=== PATIENT | male | born 1980 | race Two or more races ===

== ENCOUNTER 2024-10-15 13:51 | Outpatient (AMB) | payer OTHER, SELFPAY ==
--- NOTE | 2024-10-15 14:01 | A.OFFPC_ITS ---
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 Accompanied by: Self / Same As Patient Allergies No Known Allergies Allergy (Verified 10/15/24 14:25) Medication List - Last Reconciled 10/15/24 by RED Valadez No Known Home Meds Tobacco use date assessed: 10/15/24 Dental Screening Dental Screen Date: 10/15/24 Did you have a dental visit in the last 12 months?: Yes Did you have a dental problem in the last 6 months where you did not have access to dental care?: No Was dental information given to patient?: Patient has dentist HPI 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 Problem:: The patient is a 44-year-old male presenting to critical access hospital care for a wellness visit and management of chronic conditions. He reports a history of gallbladder removal, which previously caused pain radiating to his back, but this pain has since resolved. The patient experiences occasional mid-back pain, which he attributes to posture at work, and notes that it occurs after eating. The patient reports difficulty falling asleep, averaging four to five hours of sleep per night, and feels tired throughout the day. He has been informed of snoring and occasional gasping for air during sleep, leading to a recommendation for a home sleep study to evaluate for sleep apnea. The patient has a history of erectile disfunction, for which he is taking sertraline that he got from an online prescriber, and reports that it has been somewhat effective with making him feel more calm but does not help his erectile disfunction. He also mentions a family history of diabetes and expresses concern about his own risk, prompting a discussion about diabetes screening. The patient reports a history of constipation, which has improved recently. [facility] Medical History (Updated 10/18/24 @ 08:43 by RED Valadez) Erectile dysfunction Surgical History Cholecystotomy with removal of foreign body from gallbladder performed Family History Mother Diabetes Social History Household Members: Significant Other and Children Both parents involved: Yes Caregiver staying overnight: No Housing: House Unable to assess alcohol history related to: Unknown Alcohol intake: current Patient Tobacco Use Status: Never used Tobacco e-Cigarette/Vaping Use: Currently Using Substance Use Type: Marijuana service: No Current occupational status: employed 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 1. Little interest or pleasure in doing things: not at all 2. Feeling down, depressed, or hopeless: not at all 3. Trouble falling or staying asleep, or sleeping too much: not at all 4. Feeling tired or having little energy: more than half the days 5. Poor appetite or overeating: not at all 6. Feeling bad about yourself - or that you are a failure or have let yourself or your family down: not at all 7. Trouble concentrating on things, such as reading the newspaper or watching te levision: not at all 8. Moving or speaking so slowly that other people could have noticed. Or the opposite - being so fidgety or restless that you have been moving around a lot more than usual: not at all 9. Thoughts that you would be better off or of hurting yourself in some way: not at all Total score: 2 Depression Screening Interpretation: Negative Depression Screening Done: Yes 25903 - PHQ-9 Billing: Yes Source: Developed by Drs. Art Muñoz, Shannon Stone, Chad Velasco and colleagues, with an educational fidencio from [employer]. Thrive Questionnaire Date Thrive assessed: 10/15/24 I am a: Patient What is your living situation today?: I have a steady place to live Within the past 12 months, did the food you bought not last and you didn't have the money to get more?: Never true Within the past 12 months, did you worry whether your food would run out before you got money to buy more?: Never true Do you have trouble paying for medicines?: Yes Do you have trouble getting transportation to medical appointments?: No Do you have trouble paying your heating and electricity bill?: No Do you have trouble taking care of your child, family member or friend?: No Do you have trouble with day-to-day activities such as bathing, preparing meals, shopping, managing finances, etc.?: No Are you currently unemployed and looking for a job?: No Are you interested in more education?: No Please select the resources that you would like help with: None Currently or been in a relationship where the following occur: No concerns reported THRIVE Score: 0 AUDIT C Alcohol Use Questionnaire (AUDIT-C) 1. How often do you have a drink containing alcohol?: Monthly or less 2. How many drinks containing alcohol do you have on a typical day when you are drinking?: 1 or 2 3. How often do you have six or more drinks on one occasion?: Never Total Score: 1 MISTY-7 AMB Questionnaire MISTY-7 Date MISTY - 7 assessed: 10/15/24 Feeling nervous, anxious, or on edge: 1 = Several days Not being able to stop or control worryin = Not at all Worrying too much about different things: 0 = Not at all Trouble relaxin = Not at all Being so restless that it is hard to sit still: 0 = Not at all Becoming easily annoyed or irritable: 0 = Not at all Feeling afraid as if something awful might happen: 0 = Not at all Total MISTY-7 score (0-4 normal; 5-9 mild; 10-14 moderate; 15-21 severe): 1 Source: Developed by Drs. Art Muñoz, Shannon Stone, Chad Velasco and colleagues, with an educational fidencio from [employer] MISTY-7 Assessment Billing MISTY-7 Assessment Tool: MISTY-7 Assessment 35116 Review of Systems Const Reports daytime sleepiness, Reports difficulty sleeping, Reports fatigue, Denies headache(s), Reports snoring and Reports stops breathing during sleep Eyes Denies loss of vision ENT Denies vertigo, Denies dizziness, Denies headache(s) and Denies sore throat Card Denies chest pain, Denies leg edema and Denies lightheadedness Resp Denies cough, Denies hemoptysis, Reports snoring and Denies wheezing GI Denies abdominal pain, Denies melena, Reports constipation (History-improved), Denies diarrhea and Denies vomiting Reports erectile dysfunction, Denies dysuria, Denies urinary frequency and Denies urinary urgency Musc Reports back pain (Mid back pain), Denies arthralgias, Denies joint swelling, Denies numbness and Denies tingling Neuro Denies Abnormal speech present, Denies behavioral changes, Denies vertigo, Denies dizziness, Denies headache(s), Denies loss of vision, Denies memory loss, Denies numbness and Denies tingling Psych Reports anxiety, Denies behavioral changes, Denies depression, Denies memory loss and Denies panic attacks Endo Reports fatigue Raffi/Lymph Denies easy bleeding and Denies easy bruising Aller/Immun Denies wheezing Physical exam (Primary Care) Vital Signs: Last Vital Signs Temp 97 F 10/15/24 14:03 Pulse 78 10/15/24 14:03 Resp 18 10/15/24 14:03 BP 114/74 10/15/24 14:03 Pulse Ox 97 10/15/24 14:03 Oxygen Delivery Method Room Air 10/15/24 14:03 BMI result Body Mass Index 30.6 Tobacco/Smoking Status: Tobacco use Status Tobacco use date assessed 10/15/24 10/15/24 14:13 Patient Tobacco Use Status Never used Tobacco 10/15/24 14:13 e-Cigarette/Vaping Use Currently Using 10/15/24 14:13 PHQ-9: PHQ-9 Score PHQ-9: Total score 2 10/15/24 14:32 Depression Screening Interpretation: Negative Thrive Assessment: Date of Thrive Assessment Date Thrive assessed 10/15/24 10/15/24 14:13 Currently or been in a relationship where the following occur: No concerns reported Const General: healthy appearing, no acute distress, alert and awake Nutritional Appearance: well nourished Orientation/consciousness: oriented to person, oriented to place and oriented to time [facility] Ears: TM's normal bilaterally General nose exam: Normal nasal mucous membranes and turbinates present Eyes Conjunctivae: conjunctivae normal Sclerae: sclerae normal Pupils: Equal, round and reactive pupils present Neck Neck: Yes no lymphadenopathy and Yes no JVD Thyroid: Thyroid normal Carotids: no bruits Resp Effort & Inspection: normal respiratory effort and not tachypneic Auscultation: no crackles, no rales, no rhonchi and no wheezes Cardio Rate: regular rate Rhythm: regular rhythm Heart sounds: no murmurs and normal S1 and S2 GI Palpation (GI): Soft to palpation, nontender, no hepatomegaly and no splenomegaly Auscultation: normal bowel sounds Back/Spine/Pelvis Thoracic/Lumbar Spine: No thoracic spinal tenderness and No lumbar spinal tenderness Skin General skin exam: no rashes or lesions noted and dry skin Neuro General: oriented to person, oriented to place and oriented to time Cranial nerves: Yes Equal, round and reactive pupils present Speech: No Abnormal speech present Gait exam (Neuro): Normal gait present Motor exam (neuro): no tremor noted Extrem Right upper extremity: full ROM Left upper extremity: full ROM Right lower extremity: full ROM; no edema Left lower extremity: full ROM; no edema Psych Mental Status: mental status grossly normal Speech and movement: Normal speech and movement present Affect: normal affect Attitude: cooperative Thought process: Normal thought process present Coding Level of Care Code New Pt Level 4 (28046) Diagnoses Erectile dysfunction, unspecified erectile dysfunction type N52.9 Erectile dysfunction type: unspecified Anxiety F41.9 Additional Codes PHQ-9 - 71440 - PHQ-9 Billing: Yes ([id number]) MISTY-7 Assessment Billing - MISTY-7 Assessment Tool: MISTY-7 Assessment 65166 ([id number]) Time Spent (min) 39 Assessment & Plan Assessment & Plan (1) Erectile dysfunction: Code(s): N52.9 - Male erectile dysfunction, unspecified Category: Medical Qualifiers: Erectile dysfunction type: unspecified Qualified Code(s): N52.9 - Male erectile dysfunction, unspecified (2) Anxiety: Code(s): F41.9 - Anxiety disorder, unspecified Category: Medical Plan The patient will undergo a home sleep study to evaluate for sleep apnea, given the reported symptoms of snoring and occasional gasping for air during sleep. A diabetes screening is recommended due to the family history of diabetes and the patient's concern about his own risk. The patient is advised to continue sertraline for anxiety management, as it has been somewhat effective. Will start the patient on tadalafil for erectile dysfunction. The patient is encouraged to modify his diet, particularly reducing sweets before bedtime, to improve sleep quality. He is also advised to maintain his reduced coffee intake to weekends only. Follow-up is planned in seven weeks for a complete physical examination and review of blood work. Patient was informed and verbally consented to the use of an ambient scribe for clinic note documentation during this visit. Orders: Orders Comprehensive Rueter. Panel Fast 10/15/24 R06.81 - Apnea, not elsewhere classified, R40.0 - Somnolence, R53.83 - Other fatigue, Z00.00 - Encounter for general adult medical examination without abnormal findings Lipid Panel 10/15/24 R06.81 - Apnea, not elsewhere classified, R40.0 - Somnolence, R53.83 - Other fatigue, Z00.00 - Encounter for general adult medical examination without abnormal findings TSH reflex Free T4 10/15/24 R06.81 - Apnea, not elsewhere classified, R40.0 - Somnolence, R53.83 - Other fatigue, Z00.00 - Encounter for general adult medical examination without abnormal findings Vitamin D 25-OH Total 10/15/24 R06.81 - Apnea, not elsewhere classified, R40.0 - Somnolence, R53.83 - Other fatigue, Z00.00 - Encounter for general adult medical examination without abnormal findings RT home sleep study Today R06.81 - Apnea, not elsewhere classified, R40.0 - Somnolence, R53.83 - Other fatigue Hemoglobin A1c 10/15/24 R06.81 - Apnea, not elsewhere classified, R40.0 - Somnolence, R53.83 - Other fatigue, Z00.00 - Encounter for general adult medical examination without abnormal findings B Type Natriuretic Peptide 10/15/24 R06.81 - Apnea, not elsewhere classified, R40.0 - Somnolence, R53.83 - Other fatigue, Z00.00 - Encounter for general adult medical examination without abnormal findings Complete Blood Count Auto Diff 10/15/24 R06.81 - Apnea, not elsewhere classified, R40.0 - Somnolence, R53.83 - Other fatigue, Z00.00 - Encounter for general adult medical examination without abnormal findings UA CC w/rflx Micro + Cult 10/15/24 R06.81 - Apnea, not elsewhere classified, R40.0 - Somnolence, R53.83 - Other fatigue, Z00.00 - Encounter for general adult medical examination without abnormal findings PSA,Total (Free>4and<10) 10/15/24 R06.81 - Apnea, not elsewhere classified, R40.0 - Somnolence, R53.83 - Other fatigue, Z00.00 - Encounter for general adult medical examination without abnormal findings Medications: New tadalafil (Cialis) administer approximately 30min before sexual activity; do not use more than 1 dose per 24hrs 20 mg PO DAILY PRN 30 tabs 3RF sexual activity
[2024-10-15 14:03] VITALS: BP 114/74; PULSE 78; RESP 18; TEMP 36.1; O2SAT 97; BMI 30.6
== END 2024-10-15 14:53 | disposition home or self-care (01) ==
LOC: HO.HMCH 13:52
DX: N52.9 Male erectile dysfunction, unspecified (principal); F41.9 Anxiety disorder, unspecified

== ENCOUNTER → 2024-10-15 13:51 | Outpatient (BNVA) | payer OTHER, SELFPAY | DX: N52.9 Male erectile dysfunction, unspecified (principal); F41.9 Anxiety disorder, unspecified; R53.83 Other fatigue; R06.81 Apnea, not elsewhere classified | CPT/HCPCS: 96127 ==

== ENCOUNTER 2024-12-10 15:57 | Outpatient (AMB) | payer OTHER, SELFPAY ==
--- NOTE | 2024-12-10 15:59 | A.OFFPC_ITS ---
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 Accompanied by: Self / Same As Patient Allergies No Known Allergies Allergy (Verified 12/10/24 16:09) Medication List - Last Reconciled 12/10/24 by RED Valadez tadalafil (Cialis) 20 mg PO DAILY PRN Tobacco use date assessed: 12/10/24 Dental Screening Dental Screen Date: 12/10/24 Did you have a dental visit in the last 12 months?: Yes Did you have a dental problem in the last 6 months where you did not have access to dental care?: No Was dental information given to patient?: Patient has dentist HPI Annual Exam HPI Details Patient is presenting for annual physical Dentist:up to date Eye: two years ago, he has to make another appt Snellen: Right: Left: Corrected vision: yes, glasses STI screening: Colonoscopy: cologuard ordered Pap Smer:n /a PHQ-9: Flu:no COVID:no Tdap:reports that he had this less than 10 years ago, but he is not sure of the date exactly Diet:regular Exercise: reports that he plans on starting but he does have a physical job sertraline to 50 mg, return in six weeks for evaluation The patient is a 44-year-old male presenting with anxiety and joint pain. Anxiety management includes sertraline, with potential dose adjustments based on symptom control. Symptoms of anxiety have emerged with age, previously absent in younger years. Joint pain is noted in the mornings, improving throughout the day, with specific ankle tenderness linked to scar tissue. Surgical intervention for the ankle has been suggested but not yet undertaken. Post-gallbladder removal, the patient has adjusted diet to mitigate back pain associated with fatty food intake. [place] foods like hamburgers cause discomfort, leading to healthier dietary choices. Preventative care includes a stool test for colon cancer screening, as the patient has not had a colonoscopy. 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 Current occupational exposures/hazards: No Cognitive needs: No Hearing needs: No Vision needs: Yes Questionnaire Thrive Questionnaire Date Thrive assessed: 10/08/24 I am a: Patient What is your living situation today?: I have a steady place to live Within the past 12 months, did the food you bought not last and you didn't have the money to get more?: Never true Within the past 12 months, did you worry whether your food would run out before you got money to buy more?: Never true Do you have trouble paying for medicines?: Yes Do you have trouble getting transportation to medical appointments?: No Do you have trouble paying your heating and electricity bill?: No Do you have trouble taking care of your child, family member or friend?: No Do you have trouble with day-to-day activities such as bathing, preparing meals, shopping, managing finances, etc.?: No Are you currently unemployed and looking for a job?: No Are you interested in more education?: No Please select the resources that you would like help with: None Currently or been in a relationship where the following occur: No concerns reported THRIVE Score: 0 MISTY-7 AMB Questionnaire MISTY-7 Date MISTY - 7 assessed: 10/15/24 Source: Developed by Drs. Art Muñoz, Shannon Stone, Chad Velasco and colleagues, with an educational fidencio from [employer]. Review of Systems Const Denies headache(s) Eyes Denies loss of vision ENT Denies vertigo, Denies dizziness, Denies headache(s) and Denies sore throat Card Denies chest pain, Denies leg edema and Denies lightheadedness Resp Denies cough, Denies hemoptysis and Denies wheezing GI Denies abdominal pain, Denies melena, Denies constipation, Denies diarrhea and Denies vomiting Denies dysuria, Denies urinary frequency and Denies urinary urgency Musc Denies arthralgias, Denies joint swelling, Denies numbness and Denies tingling Neuro Denies Abnormal speech present, Denies behavioral changes, Denies vertigo, Denies dizziness, Denies headache(s), Denies loss of vision, Denies memory loss, Denies numbness and Denies tingling Psych Reports anxiety, Denies behavioral changes, Denies depression, Denies memory loss and Denies panic attacks Raffi/Lymph Denies easy bleeding and Denies easy bruising Aller/Immun Denies wheezing Physical exam (Primary Care) Vital Signs: Last Vital Signs Temp 97.3 F 12/10/24 16:00 Pulse 77 12/10/24 16:00 Resp 18 12/10/24 16:00 BP 106/68 12/10/24 16:00 Pulse Ox 99 12/10/24 16:00 Oxygen Delivery Method Room Air 12/10/24 16:00 BMI result Body Mass Index 30.9 Tobacco/Smoking Status: Tobacco use Status Tobacco use date assessed 12/10/24 12/10/24 16:04 Patient Tobacco Use Status Never used Tobacco 12/10/24 16:04 e-Cigarette/Vaping Use Currently Using 12/10/24 16:04 Thrive Assessment: Date of Thrive Assessment Date Thrive assessed 10/08/24 12/10/24 16:04 Currently or been in a relationship where the following occur: No concerns reported Const General: healthy appearing, no acute distress, alert and awake Nutritional Appearance: well nourished Orientation/consciousness: oriented to person, oriented to place and oriented to time [facility] Ears: TM's normal bilaterally General nose exam: Normal nasal mucous membranes and turbinates present Eyes Conjunctivae: conjunctivae normal Sclerae: sclerae normal Pupils: Equal, round and reactive pupils present Neck Neck: Yes no lymphadenopathy and Yes no JVD Thyroid: Thyroid normal Carotids: no bruits Resp Effort & Inspection: normal respiratory effort and not tachypneic Auscultation: no crackles, no rales, no rhonchi and no wheezes Cardio Rate: regular rate Rhythm: regular rhythm Heart sounds: no murmurs and normal S1 and S2 GI Palpation (GI): Soft to palpation, nontender, no hepatomegaly and no splenomegaly Auscultation: normal bowel sounds General: Yes no CVA tenderness Back/Spine/Pelvis Back: no CVA tenderness Thoracic/Lumbar Spine: No lumbar spinal tenderness Skin General skin exam: no rashes or lesions noted and dry skin Neuro General: oriented to person, oriented to place, oriented to time and CN's II-XI intact bilaterally Cranial nerves: Yes Equal, round and reactive pupils present Speech: No Abnormal speech present Gait exam (Neuro): Normal gait present Motor exam (neuro): no tremor noted Deep tendon reflexes (DTR's): Right triceps reflex intensity grade: 2+, Left triceps reflex intensity grade: 2+, Rt Biceps (C5, C6): 2+, Left biceps reflex intensity grade: 2+, Right brachioradialis reflex intensity grade: 2+, Left brachioradialis reflex intensity grade: 2+, Right patellar reflex intensity grade: 2+ and Left patellar reflex intensity grade: 2+ Extrem Right upper extremity: full ROM Left upper extremity: full ROM Right lower extremity: full ROM; no edema Left lower extremity: full ROM; no edema Psych Mental Status: mental status grossly normal Speech and movement: Normal speech and movement present Affect: normal affect Attitude: cooperative Thought process: Normal thought process present Coding Level of Care Code Est Pt Prev Care 40-64y(99378) Diagnoses Annual physical exam Z00.00 Erectile dysfunction, unspecified erectile dysfunction type N52.9 Erectile dysfunction type: unspecified Anxiety F41.9 Time Spent (min) 38 Assessment & Plan Assessment & Plan (1) Annual physical exam: Code(s): Z00.00 - Encounter for general adult medical examination without abnormal findings Category: Medical Plan: Preventative guidelines reviewed with the patient. Preordered labs has not been completed-patient we will get this done as soon as possible. Cologuard test ordered.Reports that his tetanus is within 10 years but he is not sure of the date. (2) Erectile dysfunction: Code(s): N52.9 - Male erectile dysfunction, unspecified Category: Medical Qualifiers: Erectile dysfunction type: unspecified Qualified Code(s): N52.9 - Male erectile dysfunction, unspecified Plan: Continue Cialis 20 mg daily p.r.n. (3) Anxiety: Code(s): F41.9 - Anxiety disorder, unspecified Category: Medical Plan: Encouraged CBT Sertraline 50 mg daily started Follow up in 6 weeks to re-evaluate Plan The patient will undergo a home sleep study to evaluate for sleep apnea, given the reported symptoms of snoring and occasional gasping for air during sleep. A diabetes screening is recommended due to the family history of diabetes and the patient's concern about his own risk. The patient is advised to continue sertraline for anxiety management, as it has been somewhat effective. Will start the patient on tadalafil for erectile dysfunction. The patient is encouraged to modify his diet, particularly reducing sweets before bedtime, to improve sleep quality. He is also advised to maintain his reduced coffee intake to weekends only. Follow-up is planned in seven weeks for a complete physical examination and review of blood work. Patient was informed and verbally consented to the use of an ambient scribe for clinic note documentation during this visit. Orders: Referrals Cologuard Test Z12.11 - Encounter for screening for malignant neoplasm of colon, Z12.12 - Encounter for screening for malignant neoplasm of rectum Medications: New sertraline 50 mg PO DAILY 30 tabs 3RF
--- OUTSIDE RECORDS SUMMARY | 2024-12-10 15:59 | XMS_ITS | Clinical Summary ---
Author Organization [facility] Address [address] [address] Phone Care Team Providers Care Sales And Business Development Manager Name Role Phone Pcp, Unknown Primary Care Provider Unavailabl e Allergies No known active allergies Medications No known medications Social History Tobacco Use Types Packs/Day Years Used Date Smoking Tobacco: Never Assessed Education Answer Date Recorded Are you interested in more education? Not on sherrie e 09/16/2022 Are you concerned about learning? Not on file 09/16/2022 No 09/16/2022 No 09/16/2022 Digital Access Answer Date Recorded No 09/16/2022 No 09/16/2022 Reliable internet access at home? Not on file 09/16/2022 Device with a working camera? Not on file Intimate Partner Violence Answer Date R ecorded Are you denied basic needs s uch as food, clothing, or medical care? No 09/16/2022 In the past 12 months have y ou been in a relationship with a person who hurts, threatens, or tries to control you? No 09/16/2022 Are you denied basic needs s uch as food, clothing, or medical care? No 09/16/2022 In the past 12 months have y ou been in a relationship with a person who hurts, threatens, or tries to control you? No 09/16/2022 Sex and Gender Information Value Date Recorded Sex Assigned at Not on file Legal Sex Male 10:31 AM EDT Gender Identity Not on file Sexual Orientation Not on file Last Filed Vital Signs Vital Sign Reading Time Taken Comments Blood Pressure 126/84 09/16/2022 3:03 PM EDT Pulse 56 09/16/2022 3:03 PM EDT Temperature 36.5 C (97.7 F) 09/16/2022 3:03 PM EDT Respiratory Rate 16 09/16/2022 3:03 PM EDT Oxygen Saturation 99% 09/16/2022 3:03 PM EDT Inhaled Oxygen Concentration - - Weight 113.4 kg (250 lb) 09/16/2022 10:51 AM EDT Height 185.4 cm (6' 1 ) 09/16/2022 10:51 AM EDT Body Mass Index 32.98 09/16/2022 10:51 AM EDT Plan of Treatment Not on file Medical Devices Not on file Insurance POS POS POS POS POS POS Member Subscriber Plan / Payer (Ef fective 2022-Present) Name:Adria Ugalde Relation to Subscriber:Self Name:Adria Ugalde Payer ID:[id number] (NAIC) Type:POS Address: [address] [place] [id number] Care Teams Sales And Business Development Manager Relationship Specialty Start Date End Date Pcp, Unknown PCP - General 09/16/22 Additional Source Comments The information contained in this document represents components of the legal health record. It is not the complete legal health record.[facility]
[2024-12-10 16:00] VITALS: BP 106/68; PULSE 77; RESP 18; TEMP 36.3; O2SAT 99; BMI 30.9
== END 2024-12-10 16:29 | disposition home or self-care (01) ==
LOC: HO.HMCH 15:57
DX: Z00.00 Encounter for general adult medical examination without abnormal findings (principal); N52.9 Male erectile dysfunction, unspecified; F41.9 Anxiety disorder, unspecified

== ENCOUNTER 2024-12-25 10:12 | Outpatient (REF) | payer OTHER, SELFPAY ==
--- OUTSIDE RECORDS SUMMARY | 2024-12-25 10:16 | XMS_ITS | Clinical Summary ---
Author Organization [facility] Address [address] [address] Phone Care Team Providers Care Cooker Mechanic Name Role Phone Pcp, Unknown Primary Care [...] Not on file Insurance POS POS POS UNITED POS UNITED POS UNITED POS Care Teams Cooker Mechanic Relationship Specialty Start Date End Date Pcp, Unknown PCP - General 09/16/22 Additional Source Comments The information contained in this document represents components of the legal health record. It is not the complete legal health record.[facility]
[2024-12-25 10:34] LABS: MANUAL DIFF FLAG NO
[2024-12-25 10:57] LABS: Hematocrit 41.2 % (42.0-52.0); Hemoglobin 13.4 g/dl (14.0-18.0); Imm Gran Abs Auto 0.02 X10*3/uL (0.00-0.03); Imm Gran Pct Auto 0.3 % (0.0-0.4); Lymphocytes Absolute Auto 2.3 X10*3/uL (1.2-4.9); Mean Corpuscular HGB Conc 32.5 g/dl (31.0-36.0); Mean Corpuscular Hemoglobin 28.8 pg (27.0-33.0); Mean Corpuscular Volume 88.4 fL (80.0-98.0); NRBC Abs Auto 0.000 X10*3/uL (0.0-0.012); NRBC Pct Auto 0.0 /100WBC (0.0-0.2); Platelet Count 263 X10*3/uL (160-400); Red Blood Count 4.66 X10*6/uL (4.60-5.80); White Blood Count 6.8 X10*3/uL (4.8-10.8)
[2024-12-25 11:10] LABS: Appearance Urine Clear; Glucose Urine UA Negative (Negative); PH 5.5 (5.0-9.0); Specific Gravity - Urine 1.015 (1.005-1.025)
[2024-12-25 11:43] LABS: Alanine Aminotransferase 16 U/L (0-40); Albumin Level 4.6 g/dL (3.5-5.0); Alkaline Phosphatase 60 U/L (39-117); Anion Gap 13 (12-20); Aspartate Amino Transferase 22 U/L (5-37); Blood Urea Nitrogen 13 mg/dL (9-16); Calcium 9.1 mg/dL (8.4-10.2); Carbon Dioxide 23 mmol/L (22-29); Chloride 105 mmol/L (96-108); Cholesterol 244 mg/dL (<200); Estimated Glomerular Filt Rate > 60; HDL Cholesterol 49 mg/dL (>40); Potassium 4.2 mmol/L (3.3-5.1); Sodium 137 mmol/L (135-145); Total Protein 7.2 g/dL (6.5-8.0); Triglycerides 133 mg/dL (<150)
[2024-12-25 12:02] LABS: PSA,Total (Free>4and<10) 1.39 ng/mL (0.00-4.00)
== END 2024-12-25 10:13 | disposition home or self-care (01) ==
LOC: HO.LAB 10:12
DX: Z00.00 Encounter for general adult medical examination without abnormal findings (principal); R53.83 Other fatigue; R40.0 Somnolence; R06.81 Apnea, not elsewhere classified; Z12.5 Encounter for screening for malignant neoplasm of prostate; Z13.1 Encounter for screening for diabetes mellitus; Z13.6 Encounter for screening for cardiovascular disorders; Z13.21 Encounter for screening for nutritional disorder
CPT/HCPCS: 36415; 80053; 80061; 81003; 82306; 83036; 84153; 84443; 85025

== ENCOUNTER 2025-01-25 15:58 | Outpatient (AMB) | payer OTHER, SELFPAY ==
[2025-01-25 16:05] VITALS: BP 102/72; PULSE 80; RESP 18; O2SAT 96; BMI 31.3
--- NOTE | 2025-01-25 16:05 | MHC.PC.OV ---
Vital Signs 01/25/25 16:05 Height 6 ft 1 in Weight 237 lb 6 oz BMI 31.3 BP 102/72 Blood Pressure Location Lt brachial Position Sitting Respiration 18 Pulse 80 Pulse Source Pulse Oximeter Temp Source Temporal Artery Scan Pulse Oximetry (%) 96 Oxygen Delivery Method Room Air Intake Visit Reasons: 6 week f/u Front Office Representative Required: No Accompanied by: Self / Same As Patient Allergies No Known Allergies Allergy (Verified 01/25/25 16:19) Medication List - Last Reconciled 01/25/25 by RED Valadez sertraline 50 mg PO DAILY tadalafil (Cialis) 20 mg PO DAILY PRN Tobacco use date assessed: 01/25/25 Dental Screening Dental Screen Date: 01/25/25 Did you have a dental visit in the last 12 months?: No Did you have a dental problem in the last 6 months where you did not have access to dental care?: No Was dental information given to patient?: Patient has dentist HPI HPI Comments History of Present Illness Details History of Present Illness The patient is a 45-year-old male presenting for anxiety follow up and a review of laboratory results. He expresses concerns about anxiety, particularly related to starting a new medication, and mentions some memory issues. Reports that right after he started sertraline 50 mg he felt more anxious so started cutting the medication in half He is currently taking sertraline 25 mg and reports that he is feeling somewhat better than before There is a history of hypercholesterolemia. He is currently not on any medication for his cholesterol even though his recent cholesterol level is elevated. The patient also has had issues with medication cost and insurance coverage, which has been a barrier to treatment for erectile dysfunction. Denies chest pain, shortness of breath, heart palpitation or dizziness Denies abdominal pain or change in bowel habits Denies any urinary symptoms Health Maintenance - Advised on dietary modifications for prediabetes, specifically to limit intake of rice, flour, and bread. - Discussed foods high in cholesterol to avoid, including dairy products, red meat, pork, shellfish, and egg yolks. Social History - Reports consuming foods high in cholesterol, such as red meat or cheese, about once a week. Results - CBC: Shows mild anemia with a hematocrit of 41.2%, which is slightly below the normal range of 42%. - Hemoglobin A1c: 5.7%, at the cutoff for prediabetes. - Lipid Panel: LDL cholesterol is elevated at 106-109 mg/dL. - Chemistry Panel: Kidney function is normal. 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 Current occupational exposures/hazards: No Cognitive needs: No Hearing needs: No Vision needs: Yes Questionnaire Thrive Questionnaire Date Thrive assessed: 01/25/25 I am a: Patient What is your living situation today?: I have a steady place to live Within the past 12 months, did the food you bought not last and you didn't have the money to get more?: Never true Within the past 12 months, did you worry whether your food would run out before you got money to buy more?: Never true Do you have trouble paying for medicines?: Yes Do you have trouble getting transportation to medical appointments?: No Do you have trouble paying your heating and electricity bill?: No Do you have trouble taking care of your child, family member or friend?: No Do you have trouble with day-to-day activities such as bathing, preparing meals, shopping, managing finances, etc.?: No Are you currently unemployed and looking for a job?: No Are you interested in more education?: No Please select the resources that you would like help with: None Currently or been in a relationship where the following occur: No concerns reported THRIVE Score: 0 MISTY-7 AMB Questionnaire MISTY-7 Date MISTY - 7 assessed: 10/15/24 Source: Developed by Drs. Art Muñoz, Shannon Stone, Chad Velasco and colleagues, with an educational fidencio from [employer]. Review of Systems Narrative Review of Systems - Neurological: Reports recent issues with memory. - Psychiatric: Reports experiencing anxiety, particularly regarding new medication. Const Denies body aches, Denies chills, Denies fever(s), Denies headache(s) and Denies poor appetite Eyes Reports no additional complaints ENT Denies dysphagia, Denies dizziness, Denies headache(s) and Denies odynophagia Card Denies chest pain, Denies syncope, Denies edema, Denies irregular heart rhythm, Denies lightheadedness and Denies dyspnea Resp Denies cough and Denies dyspnea GI Denies abdominal pain, Denies constipation, Denies dysphagia, Denies diarrhea, Denies nausea, Denies odynophagia and Denies vomiting Reports no additional complaints Musc Reports no additional complaints and Denies abnormal gait Skin/Breast Reports system reviewed and no additional complaints, except as documented Neuro Denies abnormal gait, Denies dizziness, Denies syncope and Denies headache(s) Psych Reports no additional complaints and Reports anxiety Physical exam (Primary Care) Vital Signs: Last Vital Signs Pulse 80 01/25/25 16:05 Resp 18 01/25/25 16:05 BP 102/72 01/25/25 16:05 Pulse Ox 96 01/25/25 16:05 Oxygen Delivery Method Room Air 01/25/25 16:05 BMI result Body Mass Index 31.3 Tobacco/Smoking Status: Tobacco use Status Tobacco use date assessed 01/25/25 01/25/25 16:13 Patient Tobacco Use Status Never used Tobacco 01/25/25 16:13 e-Cigarette/Vaping Use Currently Using 01/25/25 16:13 Thrive Assessment: Date of Thrive Assessment Date Thrive assessed 01/25/25 01/25/25 16:13 Currently or been in a relationship where the following occur: No concerns reported Narrative Physical Exam Const General: cooperative, healthy appearing, comfortable and no acute distress Orientation/consciousness: patient oriented x3 HENMT Head: Yes normocephalic Ears: hearing grossly normal bilaterally General nose exam: Normal external nose present Eyes General: appearance normal, both eyes and all related structures Conjunctivae: conjunctivae normal Neck Neck: Yes full ROM and Yes no lymphadenopathy Resp Effort & Inspection: normal respiratory effort Auscultation: clear to auscultation bilaterally, no crackles, no rales, no rhonchi and no wheezes Cardio Rate: regular rate Rhythm: regular rhythm Skin General skin exam: no rashes or lesions noted Neuro General: patient oriented x3 Gait exam (Neuro): Normal gait present Extrem General: Yes normal to inspection, Yes full ROM and No edema Psych Affect: normal affect Attitude: cooperative Insight: Good insight present (Psych) Judgement: Good judgement present (Psych) Results Reviewed Results Reviewed: Laboratory Tests 12/25/24 12/25/24 10:30 10:33 WBC 6.8 RBC 4.66 Hgb 13.4 L Hct 41.2 L MCV 88.4 MCH 28.8 MCHC 32.5 RDW 14.0 Plt Count 263 MPV 9.5 Sodium 137 Potassium 4.2 Chloride 105 Carbon Dioxide 23 Anion Gap 13 BUN 13 Creatinine 0.94 Estim Creat Clear Calc Not Reportable Estimated GFR > 60 Fasting Glucose 86 Estimat Average Glucose 117 Hemoglobin A1c % 5.7 Calcium 9.1 Total Bilirubin 0.5 AST 22 ALT 16 Alkaline Phosphatase 60 Total Protein 7.2 Albumin 4.6 Triglycerides 133 Cholesterol 244 H LDL Cholesterol, Calc 169 H HDL Cholesterol 49 Total PSA 1.39 25-OH Vitamin D Total 31.0 TSH 0.63 Urine Color Yellow Urine Appearance Clear Urine pH 5.5 Ur Specific Jackson 1.015 Urine Protein Negative Urine Glucose (UA) Negative Urine Ketones Negative Urine Blood Negative Urine Nitrite Negative Ur Leukocyte Esterase Negative Coding Level of Care Code Est Pt Level 4 (32783) Diagnoses Anxiety F41.9 Hyperlipidemia, unspecified hyperlipidemia type E78.5 Hyperlipidemia type: unspecified IFG (impaired fasting glucose) R73.01 Erectile dysfunction, unspecified erectile dysfunction type N52.9 Erectile dysfunction type: unspecified Anemia, unspecified type D64.9 Anemia type: unspecified type Time Spent (min) 36 Assessment & Plan Assessment & Plan (1) Anxiety: Code(s): F41.9 - Anxiety disorder, unspecified Category: Medical (2) HLD (hyperlipidemia): Code(s): E78.5 - Hyperlipidemia, unspecified Category: Medical Qualifiers: Hyperlipidemia type: unspecified Qualified Code(s): E78.5 - Hyperlipidemia, unspecified (3) IFG (impaired fasting glucose): Code(s): R73.01 - Impaired fasting glucose Category: Medical (4) Erectile dysfunction: Code(s): N52.9 - Male erectile dysfunction, unspecified Category: Medical Qualifiers: Erectile dysfunction type: unspecified Qualified Code(s): N52.9 - Male erectile dysfunction, unspecified (5) Anemia: Code(s): D64.9 - Anemia, unspecified Category: Medical Qualifiers: Anemia type: unspecified type Qualified Code(s): D64.9 - Anemia, unspecified Plan Plan Patient was informed and verbally consented to the use of an ambient scribe for clinic note documentation during this visit. 1. Anxiety The patient is experiencing anxiety after taking sertraline 50 mg, so he cut this in half and has been taking 25mg. Explained to the patient that the medication does not work that fast and it takes couple weeks for him to feel the effect of the medication. Hence, the anxiety he was feeling was not related to the medication. Encouraged him to take the medication as ordered at 50 mg daily. 2. Mild Anemia Recent labs show a very mild anemia, with a hematocrit of 41.2%. Potential causes such as vitamin deficiency or bone marrow issues were considered, but given the slight deviation, the plan is to monitor. Repeat labs will be ordered in 4 months to re-evaluate. 3. Prediabetes The patient's Hemoglobin A1c is 5.7%, which is at the threshold for prediabetes. Counseling was provided to limit carbohydrates such as rice, flour, and bread. Will repeat labs, including A1c, in 4 months to monitor for changes. 4. Hypercholesterolemia The patient has elevated LDL cholesterol. Dietary counseling was provided, with a focus on avoiding foods high in cholesterol such as dairy products, red meat, pork, shellfish, and egg yolks. A follow-up with repeat labs is planned for 4 months. 5.Erectile dysfunction The patient was prescribed sertraline from an online facility for his ED. Helped with his anxiety but not he ED. Tadalafil 20 mg daily PRN was ordered but he has been unable to get this medication due to insurance constraints. Discussion Notes I reviewed the patient's recent lab results with him. We discussed the findings of mild anemia, prediabetes based on an A1c of 5.7%, and hypercholesterolemia. I explained that the anemia is very mild and we will recheck it in 4 months. We discussed dietary modifications to address the prediabetes and high cholesterol, including limiting carbohydrates and avoiding specific high-cholesterol foods, a list of which was provided. I also addressed his concerns about a new medication for anxiety, explaining that it takes at least 4 weeks to become effective and that his current symptoms of anxiety are likely not a side effect of the pill. We scheduled a 6-week telehealth follow-up for medication management and a 4-month follow-up to repeat labs. Patient Instructions - Please contact your insurance provider to clarify the coverage and cost of your new anxiety medication. - Remember that your new anxiety medication may take at least 4 weeks to start working. - To help manage your blood sugar, please limit your intake of foods like rice, flour, and bread. - To lower your cholesterol, try to avoid dairy products, cheese, red meat, pork, shellfish, and egg yolks. - We will repeat your lab work in 4 months. Please have the labs done about one week before that follow-up appointment. - Please schedule a telehealth follow-up visit in 6 weeks to discuss how you are doing on the new medication. Orders: Orders Complete Blood Count Auto Diff 4 Months D64.9 - Anemia, unspecified, E78.5 - Hyperlipidemia, unspecified, R73.01 - Impaired fasting glucose Comprehensive [place]. Panel Fast 4 Months D64.9 - Anemia, unspecified, E78.5 - Hyperlipidemia, unspecified, R73.01 - Impaired fasting glucose UA CC w/rflx Micro + Cult 4 Months D64.9 - Anemia, unspecified, E78.5 - Hyperlipidemia, unspecified, R73.01 - Impaired fasting glucose Lipid Panel 4 Months D64.9 - Anemia, unspecified, E78.5 - Hyperlipidemia, unspecified, R73.01 - Impaired fasting glucose Hemoglobin A1c 4 Months D64.9 - Anemia, unspecified, E78.5 - Hyperlipidemia, unspecified, R73.01 - Impaired fasting glucose
--- OUTSIDE RECORDS SUMMARY | 2025-01-26 13:15 | XMS_ITS | Clinical Summary ---
Author Organization [facility] Address [address] [address] Phone Care Team Providers Care Mechanical Striper Name Role Phone Pcp, Unknown Primary Care [...] POS UNITED POS UNITED POS Care Teams Mechanical Striper Relationship Specialty Start Date End Date Pcp, Unknown PCP - General 09/16/22 Additional Source Comments The information contained in this document represents components of the legal health record. It is not the complete legal health record.[facility]
== END 2025-01-25 16:40 | disposition home or self-care (01) ==
LOC: HO.HMCH 15:59
DX: F41.9 Anxiety disorder, unspecified (principal); E78.5 Hyperlipidemia, unspecified; R73.01 Impaired fasting glucose; N52.9 Male erectile dysfunction, unspecified; D64.9 Anemia, unspecified

== ENCOUNTER 2025-03-08 14:26 | Outpatient (AMB) | payer OTHER, SELFPAY ==
[2025-03-08 14:50] VITALS: BP 102/68; PULSE 90; RESP 18; O2SAT 96; BMI 31.0
--- NOTE | 2025-03-08 14:50 | MHC.PC.OV ---
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: No Accompanied by: Self / Same As Patient Allergies No Known Allergies Allergy (Verified 03/08/25 15:06) Medication List - Last Reconciled 03/08/25 by RED Valadez sertraline 150 mg (1.5 x 100 mg) PO DAILY tadalafil (Cialis) 20 mg PO DAILY PRN Tobacco use date assessed: 03/08/25 Dental Screening Dental Screen Date: 03/08/25 Did you have a dental visit in the last 12 months?: No Did you have a dental problem in the last 6 months where you did not have access to dental care?: No Was dental information given to patient?: No HPI 6 week f/u HPI Details The patient is a 45-year-old male presenting for anxiety follow up Six weeks ago the patient sertraline was increased from 25 mg to 50 mg The patient reports that he was still feeling anxious, so at the 3 week lorin, he started taking two tabs to get 100 mg Reports that he is feeling much better with mild anxiety. 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 Current occupational exposures/hazards: No Cognitive needs: No Hearing needs: No Vision needs: Yes Questionnaire Thrive Questionnaire Date Thrive assessed: 10/08/24 I am a: Patient What is your living situation today?: I have a steady place to live Within the past 12 months, did the food you bought not last and you didn't have the money to get more?: Never true Within the past 12 months, did you worry whether your food would run out before you got money to buy more?: Never true Do you have trouble paying for medicines?: Yes Do you have trouble getting transportation to medical appointments?: No Do you have trouble paying your heating and electricity bill?: No Do you have trouble taking care of your child, family member or friend?: No Do you have trouble with day-to-day activities such as bathing, preparing meals, shopping, managing finances, etc.?: No Are you currently unemployed and looking for a job?: No Are you interested in more education?: No Currently or been in a relationship where the following occur: No concerns reported THRIVE Score: 0 MISTY-7 AMB Questionnaire MISTY-7 Date MISTY - 7 assessed: 10/15/24 Source: Developed by Drs. Art Muñoz, Shannon Stone, Chad Velasco and colleagues, with an educational fidencio from [employer]. Review of Systems Const Denies body aches, Denies chills, Denies fever(s), Denies headache(s) and Denies poor appetite Eyes Reports no additional complaints ENT Denies dysphagia, Denies dizziness, Denies headache(s) and Denies odynophagia Card Denies chest pain, Denies syncope, Denies edema, Denies irregular heart rhythm, Denies lightheadedness and Denies dyspnea Resp Denies cough and Denies dyspnea GI Denies abdominal pain, Denies constipation, Denies dysphagia, Denies diarrhea, Denies nausea, Denies odynophagia and Denies vomiting Reports no additional complaints Musc Reports no additional complaints and Denies abnormal gait Skin/Breast Reports system reviewed and no additional complaints, except as documented Neuro Denies abnormal gait, Denies dizziness, Denies syncope and Denies headache(s) Psych Reports anxiety Physical exam (Primary Care) Vital Signs: Last Vital Signs Pulse 90 03/08/25 14:50 Resp 18 03/08/25 14:50 BP 102/68 03/08/25 14:50 Pulse Ox 96 03/08/25 14:50 Oxygen Delivery Method Room Air 03/08/25 14:50 BMI result Body Mass Index 31.0 Tobacco/Smoking Status: Tobacco use Status Tobacco use date assessed 03/08/25 03/08/25 14:56 Patient Tobacco Use Status Never used Tobacco 03/08/25 14:56 e-Cigarette/Vaping Use Currently Using 03/08/25 14:56 Thrive Assessment: Date of Thrive Assessment Date Thrive assessed 10/08/24 03/08/25 14:56 Currently or been in a relationship where the following occur: No concerns reported Const General: cooperative, healthy appearing, comfortable and no acute distress Orientation/consciousness: patient oriented x3 HENMT Head: Yes normocephalic Ears: hearing grossly normal bilaterally General nose exam: Normal external nose present Eyes General: appearance normal, both eyes and all related structures Conjunctivae: conjunctivae normal Neck Neck: Yes full ROM and Yes no lymphadenopathy Resp Effort & Inspection: normal respiratory effort Auscultation: clear to auscultation bilaterally, no crackles, no rales, no rhonchi and no wheezes Cardio Rate: regular rate Rhythm: regular rhythm Skin General skin exam: no rashes or lesions noted Neuro General: patient oriented x3 Gait exam (Neuro): Normal gait present Extrem General: Yes normal to inspection, Yes full ROM and No edema Psych Affect: normal affect Attitude: cooperative Insight: Good insight present (Psych) Judgement: Good judgement present (Psych) Coding Level of Care Code Est Pt Level 3 (30793) Diagnoses Anxiety F41.9 Time Spent (min) 26 Assessment & Plan Assessment & Plan (1) Anxiety: Code(s): F41.9 - Anxiety disorder, unspecified Category: Medical Plan: The patient reports improvement in his anxiety symptoms, feeling less edgy, since his medication was increased to 100 mg about three weeks prior. As the medication may not have reached its full therapeutic effect, the plan is to continue the 100 mg dose for a longer duration to fully assess its efficacy. A prescription for 100 mg tablets will be ordered, with the option for the patient to increase the dose to 150 mg by taking one and a half tablets if his anxiety does not sufficiently improve. The patient to return in 6 weeks for re-evaluation Medications: New sertraline 150 mg (1.5 x 100 mg) PO DAILY 90 tabs 3RF Discontinued sertraline Discontinued Reason: Duplicate 50 mg PO DAILY 30 tabs 3RF
--- OUTSIDE RECORDS SUMMARY | 2025-03-08 18:08 | XMS_ITS | Clinical Summary ---
Author Organization [facility] Address [address] [address] Phone Care Team Providers Care Sales Development Manager Name Role Phone Pcp, Unknown [...] POS UNITED POS UNITED POS Care Teams Sales Development Manager Relationship Specialty Start Date End Date Pcp, Unknown PCP - General 09/16/22 Additional Source Comments The information contained in this document represents components of the legal health record. It is not the complete legal health record.[facility]
== END 2025-03-08 15:08 | disposition home or self-care (01) ==
DX: F41.9 Anxiety disorder, unspecified (principal)